=== PATIENT | female | born 1955 | race Caucasian/White ===

== ENCOUNTER 2018-05-12 07:36 | Emergency (ER) | payer BC ==
[2018-05-12 08:19] VITALS: BP 120/74
--- NOTE | 2018-05-12 08:34 | UC ---
Throat Pain/Nasal Romel HPI - HPI Summary HPI Summary: 62-year-old woman comes in with a chief complaint of sore throat. Been going on for 2 days. Patient feels like her airway is narrowed and it's getting worse. Pain is worse when she swallows or tries to eat or drink anything. Has had some chills. Not having any body aches. No chest congestion. She did take some [id number] medicine which did help somewhat symptoms. - History of Current Complaint Chief Complaint: UCRespiratory Stated Complaint: FEVER,THROAT,COUGH Time Seen by Provider: 05/12/18 08:20 Pain Intensity: 8 - Allergies/Home Medications Allergies/Adverse Reactions: Allergies Allergy/AdvReac Type Severity Reaction Status Date / Time No Known Allergies Allergy Verified 05/12/18 08:13 Home Medications: Home Medications Amlodipine Besylate/Benazepril [Lotrel 5-20 mg] 1 cap PO DAILY 05/12/18 [ History Confirmed 05/12/18] Aspirin TAB* [Aspirin 325 MG TAB*] 650 mg PO Q6H PRN 05/12/18 [History Confirmed 05/12/18] Dm/PE/Acetaminophen/Doxylamine [COLD & FLU MULTI-SYMPTOM (Liquid)] 1 mis PO ONCE PRN 05/12/18 [History Confirmed 05/12/18] PMH/Surg Hx/FS Hx/Imm Hx Previously Healthy: Yes - Surgical History Surgical History: Yes Surgery Procedure, Year, and Place: fibroid. tumor in breast. bunionectomy - Family History Known Family History: Positive: Non-Contributory - Social History Alcohol Use: Occasionally Substance Use Type: None Smoking Status (MU): Never Smoked Tobacco Review of Systems All Other Systems Reviewed And Are Negative: Yes Constitutional: Positive: Chills Skin: Positive: Negative Eyes: Positive: Negative ENT: Positive: Sore Throat, Nasal Discharge, Sinus Congestion Respiratory: Positive: Negative Cardiovascular: Positive: Negative Gastrointestinal: Positive: Negative Motor: Positive: Negative Neurovascular: Positive: Negative Musculoskeletal: Positive: Negative Neurological: Positive: Negative Psychological: Positive: Negative Is Patient Immunocompromised?: No Physical Exam Triage Information Reviewed: Yes Appearance: No Pain Distress, Well-Nourished, Ill-Appearing - MILD Vital Signs: Initial Vital Signs Temp 99.7 F 05/12/18 08:15 Pulse 82 05/12/18 08:15 Resp 15 05/12/18 08:15 BP 120/74 05/12/18 08:15 Pulse Ox 97 05/12/18 08:15 Vital Signs Reviewed: Yes Eye Exam: Normal Eyes: Positive: Conjunctiva Clear ENT: Positive: Pharyngeal erythema, Nasal congestion, Nasal drainage, TMs normal , Uvula midline, Other - No peritonsillar swelling no sign of peritonsillar abscess.. Negative: Tonsillar swelling, Tonsillar exudate, Muffled voice, Hoarse voice Neck exam: Normal Neck: Positive: Supple Respiratory: Positive: Lungs clear, Normal breath sounds, No respiratory distress Cardiovascular: Positive: RRR Musculoskeletal Exam: Normal Musculoskeletal: Positive: Strength Intact, ROM Intact Neurological Exam: Normal Neurological: Positive: Alert, Muscle Tone Normal Psychological Exam: Normal Psychological: Positive: Age Appropriate Behavior Skin Exam: Normal Throat Pain/Nasal Course/Dx - Course Course Of Treatment: DISCUSSED VIRAL VERSES BACTERIAL INFECTION AND THE ROLE OF ANTIBIOTICS. THE PATIENT WISHES TO BE ON ANTIBIOTIC AT THIS TIME. Due to the patient feeling like her airway is being shut off we'll also treat with prednisone. If she gets worse she needs to go the emergency department. - Differential Dx/Diagnosis Provider Diagnosis: Pharyngitis Discharge - Sign-Out/Discharge Documenting (check all that apply): Patient Departure All imaging exams completed and their final reports reviewed: No Studies - Discharge Plan Condition: Stable Disposition: HOME Prescriptions: Amoxicillin PO (*) [Amoxicillin 500 MG CAP*] 500 mg PO TID #30 cap predniSONE TAB* [Deltasone 20 MG TAB*] 40 mg PO DAILY #6 tab Patient Education Materials: Pharyngitis (ED) Referrals: Christel ASCENCIO,Noel Cid [Primary Care Provider] - Additional Instructions: FOLLOW UP WITH YOUR DOCTOR IF NOT COMPLETELY IMPROVED. GET RECHECKED FOR ANY WORSENING OF YOUR CONDITION OR QUESTIONS OR CONCERNS. - Billing Disposition and Condition Condition: STABLE Disposition: Home
== END 2018-05-12 08:56 | disposition home or self-care (01) ==
LOC: UCCORT 07:36
DX: J02.9 Acute pharyngitis, unspecified (principal); R09.81 Nasal congestion; Z79.82 Long term (current) use of aspirin
CPT/HCPCS: 87651; 99202; G0463